=== PATIENT | male | born 1960 | race Caucasian/White ===

== ENCOUNTER 2023-04-02 12:40 | Inpatient (IN) | payer OTHER ==
[~2023-04-02] VITALS: Ht 170.2 cm; Wt 86.2 kg
[2023-04-02] MEDS ORDERED: PIPERACILLIN /TAZOBACTAM 3.375 G in IV D5W 50 ML IV ONE (13:00)
[2023-04-02] MEDS ORDERED: VANCOMYCIN 1 GM in IV D5W 250 ML IV ONE (13:00)
[2023-04-02 13:37] LABS: BASOPHILS # (AUTO) 0.1 K/uL (0.0-0.2); BASOPHILS % (AUTO) 0.9 % (0.0-2.0); EOSINOPHILS # (AUTO) 0.1 K/uL (0.0-0.7); EOSINOPHILS % (AUTO) 1.9 % (0.0-6.0); HEMATOCRIT 46 % (39-51); HEMOGLOBIN 15.8 g/dL (13.5-17.5); LYMPHOCYTES # (AUTO) 2.2 K/uL (0.8-4.8); LYMPHOCYTES % (AUTO) 29.4 % (20.0-44.0); MEAN CORPUSCULAR HEMOGLOBIN 32 PG (26.0-33.0); MEAN CORPUSCULAR HGB CONC 34 g/dl (31.0-36.0); MEAN CORPUSCULAR VOLUME 93 fL (80-96); MONOCYTES # (AUTO) 0.6 K/uL (0.1-1.30); MONOCYTES % (AUTO) 8.5 % (2.0-12.0); NEUTROPHILS # (AUTO) 4.5 K/uL (1.8-8.9); NEUTROPHILS % (AUTO) 59.3 % (43.0-81.0); PLATELET COUNT (AUTO) 173 K/uL (150-450); RED BLOOD CELL COUNT(AUTO) 4.98 MIL/uL (4.5-6.0); RED CELL DISTRIBUTION WIDTH 13.7 % (11.5-15.0); WHITE BLOOD COUNT (AUTO) 7.5 K/uL (4.3-11.0)
[2023-04-02] MEDS ORDERED: CLON0.1T PO (13:41)
[2023-04-02] MEDS ORDERED: CADE40GE2 TP (13:41)
[2023-04-02] MEDS ORDERED: BACL20TA PO ×2 (13:41)
[2023-04-02] MEDS ORDERED: DOCU-141 PO (13:41)
[2023-04-02] MEDS ORDERED: RIVA10TA PO ×2 (13:41)
[2023-04-02] MEDS ORDERED: BISA10SU11 RC (13:41)
[2023-04-02] MEDS ORDERED: HYDR-3976 PO (13:41)
[2023-04-02] MEDS ORDERED: HYDR-4209 PO ×2 (13:41)
[2023-04-02] MEDS ORDERED: NA P133E RC (13:41)
[2023-04-02] MEDS ORDERED: ACET-868 PO (13:41)
[2023-04-02] MEDS ORDERED: SENN-261 PO (13:41)
[2023-04-02] MEDS ORDERED: MULT-447 PO (13:41)
[2023-04-02] MEDS ORDERED: MAGN400O6 PO (13:41)
[2023-04-02] MEDS ORDERED: OXYB10TA30 PO (13:41)
[2023-04-02] MEDS ORDERED: GABA-532 PO (13:41)
[2023-04-02] MEDS ORDERED: ASCO-352 PO (13:41)
[2023-04-02] MEDS ORDERED: LISI-768 PO (13:41)
[2023-04-02 13:48] LABS: C-REACTIVE PROTEIN 0.34 mg/dL (0.0-0.30); CREATININE 0.8 mg/dL (0.6-1.3); POTASSIUM 4.1 mmol/L (3.5-5.1)
[2023-04-02 13:52] LABS: ERYTHROCYTE SEDIMENTATION RATE 21 MM/HR (0-20)
[2023-04-02 13:54] LABS: ALBUMIN 3.5 g/dL (3.4-5.0); BILIRUBIN,TOTAL 0.4 mg/dL (0.2-1.0); TOTAL PROTEIN, SERUM 7.7 g/dL (6.4-8.2)
[2023-04-02] MEDS ORDERED: DEXTROSE 50%-WATER 50 ML DISP.SYRIN IV PRN (18:00)
[2023-04-02] MEDS ORDERED: ONDANSETRON HCL/PF 4 MG/2 ML VIAL IVP PRN (18:00)
[2023-04-02] MEDS ORDERED: Z GUARD REMEDY 4 OZ OINT TP PRN (18:00)
[2023-04-02 20:00] VITALS: BP 147/93; TEMP 98.1; O2SAT 96
[2023-04-02] MEDS: BLOOD SUGAR DIAGNOSTIC 1 EACH STRIP IN SCH (21:43)
[2023-04-02] MEDS: INSULIN REGULAR, HUMAN 100 UNIT/ML 3 ML VIAL SQ PRN (21:44)
[2023-04-02] MEDS: ACETAMINOPHEN 325 MG TABLET PO PRN (23:55)
[2023-04-03] MEDS: VANCOMYCIN 1.25 GM in IV D5W 250 ML IV SCH ×2 (01:51→14:08)
[2023-04-03] MEDS: INSULIN REGULAR, HUMAN 100 UNIT/ML 3 ML VIAL SQ PRN ×2 (06:34→11:41)
[2023-04-03] MEDS: BLOOD SUGAR DIAGNOSTIC 1 EACH STRIP IN SCH ×4 (06:34→22:12)
[2023-04-03 07:00] LABS: BASOPHILS % (AUTO) 0.5 % (0.0-2.0); EOSINOPHILS # (AUTO) 0.2 K/uL (0.0-0.7); EOSINOPHILS % (AUTO) 2.7 % (0.0-6.0); HEMATOCRIT 47 % (39-51); LYMPHOCYTES % (AUTO) 29.6 % (20.0-44.0); MEAN CORPUSCULAR HEMOGLOBIN 32 PG (26.0-33.0); MEAN CORPUSCULAR HGB CONC 34 g/dl (31.0-36.0); MEAN CORPUSCULAR VOLUME 93 fL (80-96); MONOCYTES # (AUTO) 0.4 K/uL (0.1-1.30); MONOCYTES % (AUTO) 6.8 % (2.0-12.0); NEUTROPHILS % (AUTO) 60.4 % (43.0-81.0); PLATELET COUNT (AUTO) 157 K/uL (150-450); RED BLOOD CELL COUNT(AUTO) 5.03 MIL/uL (4.5-6.0); RED CELL DISTRIBUTION WIDTH 13.7 % (11.5-15.0); WHITE BLOOD COUNT (AUTO) 6.6 K/uL (4.3-11.0)
[2023-04-03 08:00] VITALS: BP 148/92; TEMP 98.2; O2SAT 96
[2023-04-03 08:24] LABS: CALCIUM, SERUM 8.8 mg/dL (8.5-10.1); CREATININE 0.8 mg/dL (0.6-1.3); MAGNESIUM 2.1 mg/dL (1.8-2.4); PHOSPHORUS 3.5 mg/dL (2.5-4.9); POTASSIUM 3.8 mmol/L (3.5-5.1)
[2023-04-03] MEDS: LISINOPRIL (5MG) 5 MG TABLET PO SCH (09:10)
[2023-04-03] MEDS: OXYBUTYNIN CHLORIDE ER 5 MG TAB PO SCH (09:11)
[2023-04-03] MEDS: BACLOFEN (10 MG) 10 MG TABLET PO SCH ×2 (09:11→16:23)
[2023-04-03] MEDS: GABAPENTIN 300 MG CAPSULE PO SCH ×3 (09:12→16:24)
[2023-04-03] MEDS: RIVAROXABAN 10 MG TABLET PO SCH (09:14)
[2023-04-03] MEDS ORDERED: IOHEXOL-350 100 ML VIAL IV ONE (09:59)
[2023-04-03] MEDS ORDERED: CT SWABBABLE VALVE TRANS SET 1 EA INFUS.SET MC ONE (09:59)
[2023-04-03] MEDS ORDERED: IV NS 0.9% 250 ML IV ONE (09:59)
[2023-04-03 16:00] VITALS: BP 123/80; TEMP 98.4; O2SAT 96
[2023-04-03 19:45] VITALS: BP 114/80; TEMP 98.8; O2SAT 97
[2023-04-04] MEDS: VANCOMYCIN 1.25 GM in IV D5W 250 ML IV SCH (02:27)
[2023-04-04] MEDS: BLOOD SUGAR DIAGNOSTIC 1 EACH STRIP IN SCH ×4 (06:08→22:17)
[2023-04-04 08:46] VITALS: BP 132/80; TEMP 98; O2SAT 98
[2023-04-04] MEDS: BACLOFEN (10 MG) 10 MG TABLET PO SCH ×2 (08:55→17:08)
[2023-04-04] MEDS: OXYBUTYNIN CHLORIDE ER 5 MG TAB PO SCH (08:55)
[2023-04-04] MEDS: LISINOPRIL (5MG) 5 MG TABLET PO SCH (08:55)
[2023-04-04] MEDS: GABAPENTIN 300 MG CAPSULE PO SCH ×3 (08:55→17:08)
[2023-04-04] MEDS: RIVAROXABAN 10 MG TABLET PO SCH (08:56)
[2023-04-04] MEDS: CADEXOMER IODINE 40 GM TUBE TP SCH (08:59)
[2023-04-04] MEDS: VANCOMYCIN 1 GM in IV D5W 250 ML IV SCH (15:24)
[2023-04-04 16:13] VITALS: BP 131/95; TEMP 98.7; O2SAT 97
[2023-04-04 20:00] VITALS: BP 140/87; TEMP 98; O2SAT 96
[2023-04-05] VITALS (12 sets, daily range): BP systolic 128–155; BP diastolic 62–119; TEMP 97.3–98.4; O2SAT 93–98
[2023-04-05] MEDS: VANCOMYCIN 1 GM in IV D5W 250 ML IV SCH ×2 (03:34→16:47)
[2023-04-05] MEDS: IV NS 0.9% 1,000 ML IV PRN ×2 (05:43→17:13)
[2023-04-05] MEDS ORDERED: IV NS 0.9% 1,000 ML BAG IV SCH (06:00)
[2023-04-05 07:10] LABS: CALCIUM, SERUM 9.1 mg/dL (8.5-10.1); CREATININE 0.8 mg/dL (0.6-1.3); POTASSIUM 3.9 mmol/L (3.5-5.1)
[2023-04-05] MEDS: BLOOD SUGAR DIAGNOSTIC 1 EACH STRIP IN SCH ×4 (08:22→23:11)
[2023-04-05 09:41] LABS: INR 1.13 (0.91-1.10); PARTIAL THROMBOPLASTIN TIME 33.7 SEC (24.3-34.3); PROTHROMBIN TIME 11.9 SECS (9.2-11.1)
[2023-04-05] MEDS: GABAPENTIN 300 MG CAPSULE PO SCH ×3 (10:41→16:48)
[2023-04-05] MEDS: LISINOPRIL (5MG) 5 MG TABLET PO SCH (10:41)
[2023-04-05] MEDS: OXYBUTYNIN CHLORIDE ER 5 MG TAB PO SCH (10:42)
[2023-04-05] MEDS: BACLOFEN (10 MG) 10 MG TABLET PO SCH ×2 (10:42→16:49)
[2023-04-05] MEDS: CADEXOMER IODINE 40 GM TUBE TP SCH (11:24)
[2023-04-05] MEDS ORDERED: IODIXANOL 150 ML IV ONE (13:02)
[2023-04-05] MEDS ORDERED: IV NS 0.9% 1,000 ML ONE (13:02)
[2023-04-05] MEDS ORDERED: IV SET PRIMARY PUMP SET 1 EA INFUS.SET MC ONE (13:02)
[2023-04-05] MEDS ORDERED: LIDOCAINE HCL/MPF 1% 30 ML VIAL IJ ONE (13:02)
[2023-04-05] MEDS ORDERED: FENTANYL PF 100MCG/2ML AMPUL ONE (13:35)
[2023-04-05] MEDS ORDERED: MIDAZOLAM HCL 2 MG/2ML VIAL ONE (13:35)
[2023-04-05] MEDS: FLUCONAZOLE (100 MG) 100 MG TABLET PO SCH (16:49)
[2023-04-05] MEDS: NYSTATIN TOP POWDER 15 GM BOTTLE TP SCH (17:33)
[2023-04-05] MEDS: INSULIN REGULAR, HUMAN 100 UNIT/ML 3 ML VIAL SQ PRN ×2 (17:40→23:11)
[2023-04-06] MEDS: VANCOMYCIN 1 GM in IV D5W 250 ML IV SCH ×2 (02:25→15:45)
[2023-04-06] MEDS: BLOOD SUGAR DIAGNOSTIC 1 EACH STRIP IN SCH ×4 (06:37→21:49)
[2023-04-06 07:51] LABS: CALCIUM, SERUM 8.8 mg/dL (8.5-10.1); CREATININE 0.7 mg/dL (0.6-1.3)
[2023-04-06 08:00] VITALS: BP 139/85; TEMP 98.2; O2SAT 96
[2023-04-06] MEDS: GABAPENTIN 300 MG CAPSULE PO SCH ×3 (08:25→16:38)
[2023-04-06] MEDS: BACLOFEN (10 MG) 10 MG TABLET PO SCH ×2 (08:25→16:38)
[2023-04-06] MEDS: OXYBUTYNIN CHLORIDE ER 5 MG TAB PO SCH (08:25)
[2023-04-06] MEDS: FLUCONAZOLE (100 MG) 100 MG TABLET PO SCH (08:26)
[2023-04-06] MEDS: LISINOPRIL (5MG) 5 MG TABLET PO SCH (08:34)
[2023-04-06] MEDS: NYSTATIN TOP POWDER 15 GM BOTTLE TP SCH ×2 (10:19→16:39)
[2023-04-06] MEDS: CADEXOMER IODINE 40 GM TUBE TP SCH (10:19)
[2023-04-06] MEDS: INSULIN REGULAR, HUMAN 100 UNIT/ML 3 ML VIAL SQ PRN ×2 (11:13→16:53)
[2023-04-06] MEDS: IV NS 0.9% 1,000 ML IV PRN (12:21)
[2023-04-06 16:13] VITALS: BP 139/83; TEMP 97.9; O2SAT 98
[2023-04-06 20:00] VITALS: BP 124/79; TEMP 97.8; O2SAT 96
[2023-04-07] MEDS: VANCOMYCIN 1 GM in IV D5W 250 ML IV SCH ×2 (02:54→15:37)
[2023-04-07] MEDS: IV NS 0.9% 1,000 ML IV PRN ×2 (02:54→18:23)
[2023-04-07 05:58] LABS: CALCIUM, SERUM 8.8 mg/dL (8.5-10.1); CREATININE 0.7 mg/dL (0.6-1.3); POTASSIUM 3.9 mmol/L (3.5-5.1)
[2023-04-07] MEDS: BLOOD SUGAR DIAGNOSTIC 1 EACH STRIP IN SCH ×4 (06:30→22:07)
[2023-04-07 07:30] VITALS: BP 132/91; TEMP 97.9; O2SAT 97
[2023-04-07] MEDS: FLUCONAZOLE (100 MG) 100 MG TABLET PO SCH (08:52)
[2023-04-07] MEDS: OXYBUTYNIN CHLORIDE ER 5 MG TAB PO SCH (08:52)
[2023-04-07] MEDS: GABAPENTIN 300 MG CAPSULE PO SCH ×3 (08:52→17:32)
[2023-04-07] MEDS: LISINOPRIL (5MG) 5 MG TABLET PO SCH (08:53)
[2023-04-07] MEDS: BACLOFEN (10 MG) 10 MG TABLET PO SCH ×2 (08:53→17:32)
[2023-04-07] MEDS: NYSTATIN TOP POWDER 15 GM BOTTLE TP SCH ×2 (09:28→17:33)
[2023-04-07] MEDS: CADEXOMER IODINE 40 GM TUBE TP SCH (09:28)
[2023-04-07 16:15] VITALS: BP 134/87; TEMP 97.3; O2SAT 96
[2023-04-07 20:43] VITALS: BP 139/84; TEMP 98.4; O2SAT 96
[2023-04-07] MEDS: INSULIN REGULAR, HUMAN 100 UNIT/ML 3 ML VIAL SQ PRN (22:11)
[2023-04-08] MEDS: VANCOMYCIN 1 GM in IV D5W 250 ML IV SCH (03:05)
[2023-04-08] MEDS: BLOOD SUGAR DIAGNOSTIC 1 EACH STRIP IN SCH ×4 (06:14→22:03)
[2023-04-08] MEDS: INSULIN REGULAR, HUMAN 100 UNIT/ML 3 ML VIAL SQ PRN ×4 (06:35→22:06)
[2023-04-08 07:30] VITALS: BP 135/87; TEMP 98.4; O2SAT 96
[2023-04-08] MEDS: FLUCONAZOLE (100 MG) 100 MG TABLET PO SCH (09:23)
[2023-04-08] MEDS: OXYBUTYNIN CHLORIDE ER 5 MG TAB PO SCH (09:24)
[2023-04-08] MEDS: BACLOFEN (10 MG) 10 MG TABLET PO SCH ×2 (09:24→17:10)
[2023-04-08] MEDS: LISINOPRIL (5MG) 5 MG TABLET PO SCH (09:24)
[2023-04-08] MEDS: GABAPENTIN 300 MG CAPSULE PO SCH ×3 (09:24→17:10)
[2023-04-08] MEDS: NYSTATIN TOP POWDER 15 GM BOTTLE TP SCH ×2 (09:27→17:10)
[2023-04-08] MEDS: CADEXOMER IODINE 40 GM TUBE TP SCH (09:28)
[2023-04-08] MEDS: ACETAMINOPHEN 325 MG TABLET PO PRN (11:39)
[2023-04-08] MEDS: IV NS 0.9% 1,000 ML IV PRN (11:42)
[2023-04-08 20:00] VITALS: BP 115/83; TEMP 98; O2SAT 98
[2023-04-09] MEDS: IV NS 0.9% 1,000 ML IV PRN ×2 (01:45→15:44)
[2023-04-09] MEDS: BLOOD SUGAR DIAGNOSTIC 1 EACH STRIP IN SCH ×4 (06:10→22:05)
[2023-04-09] MEDS: INSULIN REGULAR, HUMAN 100 UNIT/ML 3 ML VIAL SQ PRN ×4 (06:14→22:06)
[2023-04-09 06:59] LABS: BASOPHILS % (AUTO) 0.7 % (0.0-2.0); EOSINOPHILS # (AUTO) 0.2 K/uL (0.0-0.7); EOSINOPHILS % (AUTO) 2.6 % (0.0-6.0); HEMATOCRIT 43 % (39-51); HEMOGLOBIN 14.6 g/dL (13.5-17.5); LYMPHOCYTES # (AUTO) 1.6 K/uL (0.8-4.8); LYMPHOCYTES % (AUTO) 25.2 % (20.0-44.0); MEAN CORPUSCULAR HEMOGLOBIN 32 PG (26.0-33.0); MEAN CORPUSCULAR HGB CONC 34 g/dl (31.0-36.0); MEAN CORPUSCULAR VOLUME 93 fL (80-96); MONOCYTES # (AUTO) 0.4 K/uL (0.1-1.30); MONOCYTES % (AUTO) 6.1 % (2.0-12.0); NEUTROPHILS # (AUTO) 4.2 K/uL (1.8-8.9); NEUTROPHILS % (AUTO) 65.4 % (43.0-81.0); PLATELET COUNT (AUTO) 151 K/uL (150-450); RED BLOOD CELL COUNT(AUTO) 4.58 MIL/uL (4.5-6.0); RED CELL DISTRIBUTION WIDTH 13.6 % (11.5-15.0); WHITE BLOOD COUNT (AUTO) 6.4 K/uL (4.3-11.0)
[2023-04-09 07:00] VITALS: BP 144/74; TEMP 97.5; O2SAT 98
[2023-04-09 07:10] LABS: INR 1.07 (0.91-1.10); PROTHROMBIN TIME 11.3 SECS (9.2-11.1)
[2023-04-09 08:06] LABS: MAGNESIUM 1.9 mg/dL (1.8-2.4); PHOSPHORUS 4.1 mg/dL (2.5-4.9)
[2023-04-09] MEDS: BACLOFEN (10 MG) 10 MG TABLET PO SCH ×2 (09:25→17:35)
[2023-04-09] MEDS: GABAPENTIN 300 MG CAPSULE PO SCH ×3 (09:25→17:35)
[2023-04-09] MEDS: OXYBUTYNIN CHLORIDE ER 5 MG TAB PO SCH (09:25)
[2023-04-09] MEDS: FLUCONAZOLE (100 MG) 100 MG TABLET PO SCH (09:26)
[2023-04-09] MEDS: LISINOPRIL (5MG) 5 MG TABLET PO SCH (09:26)
[2023-04-09] MEDS: NYSTATIN TOP POWDER 15 GM BOTTLE TP SCH ×2 (09:29→17:36)
[2023-04-09] MEDS: CADEXOMER IODINE 40 GM TUBE TP SCH (09:31)
[2023-04-09] MEDS ORDERED: Magnesium 1 GM/2 ML VIAL IV ONE (14:30)
[2023-04-09] MEDS: Magnesium 1GM/D5W 100ML PREMIX 100 ML IV SCH ×2 (15:55→17:34)
[2023-04-09 16:00] VITALS: BP 150/103; TEMP 97.4; O2SAT 95
[2023-04-09 20:07] VITALS: BP 124/83; TEMP 97.9; O2SAT 99
[2023-04-10] VITALS (26 sets, daily range): BP systolic 96–153; BP diastolic 65–106; TEMP 97.8–98.9; O2SAT 94–99
[2023-04-10 05:45] LABS: BASOPHILS # (AUTO) 0.1 K/uL (0.0-0.2); BASOPHILS % (AUTO) 0.8 % (0.0-2.0); EOSINOPHILS # (AUTO) 0.2 K/uL (0.0-0.7); EOSINOPHILS % (AUTO) 2.2 % (0.0-6.0); HEMATOCRIT 44 % (39-51); HEMOGLOBIN 14.7 g/dL (13.5-17.5); LYMPHOCYTES # (AUTO) 1.8 K/uL (0.8-4.8); LYMPHOCYTES % (AUTO) 25.6 % (20.0-44.0); MEAN CORPUSCULAR HEMOGLOBIN 31 PG (26.0-33.0); MEAN CORPUSCULAR HGB CONC 34 g/dl (31.0-36.0); MEAN CORPUSCULAR VOLUME 94 fL (80-96); MONOCYTES # (AUTO) 0.4 K/uL (0.1-1.30); MONOCYTES % (AUTO) 5.9 % (2.0-12.0); NEUTROPHILS # (AUTO) 4.6 K/uL (1.8-8.9); NEUTROPHILS % (AUTO) 65.5 % (43.0-81.0); PLATELET COUNT (AUTO) 151 K/uL (150-450); RED BLOOD CELL COUNT(AUTO) 4.68 MIL/uL (4.5-6.0); RED CELL DISTRIBUTION WIDTH 13.3 % (11.5-15.0)
[2023-04-10 06:02] LABS: ALBUMIN 3.1 g/dL (3.4-5.0); CALCIUM, SERUM 8.8 mg/dL (8.5-10.1); CREATININE 0.7 mg/dL (0.6-1.3); MAGNESIUM 2.1 mg/dL (1.8-2.4); PHOSPHORUS 3.9 mg/dL (2.5-4.9); TOTAL PROTEIN, SERUM 7.3 g/dL (6.4-8.2)
[2023-04-10] MEDS: BLOOD SUGAR DIAGNOSTIC 1 EACH STRIP IN SCH ×4 (06:29→22:21)
[2023-04-10] MEDS: OXYBUTYNIN CHLORIDE ER 5 MG TAB PO SCH (09:17)
[2023-04-10] MEDS ORDERED: HEMOSTATIC MATRIX 8 ML 1 EACH PAD MC ONE (09:17)
[2023-04-10] MEDS: NYSTATIN TOP POWDER 15 GM BOTTLE TP SCH ×2 (09:17→17:00)
[2023-04-10] MEDS: LISINOPRIL (5MG) 5 MG TABLET PO SCH (09:17)
[2023-04-10] MEDS ORDERED: CELLULOSE,OXIDIZED 1 EA PACK MC ONE (09:18)
[2023-04-10] MEDS ORDERED: LIDOCAINE HCL/MPF 1% 30 ML VIAL IJ ONE (09:18)
[2023-04-10] MEDS: GABAPENTIN 300 MG CAPSULE PO SCH ×3 (09:18→18:11)
[2023-04-10] MEDS ORDERED: ANESTHESIA TRAY IN PYXIS 1 EA TRAY MC ONE (09:18)
[2023-04-10] MEDS: BACLOFEN (10 MG) 10 MG TABLET PO SCH ×2 (09:18→18:11)
[2023-04-10] MEDS ORDERED: CELLULOSE,OXIDIZED 1 EACH EACH MC ONE (09:18)
[2023-04-10] MEDS: CADEXOMER IODINE 40 GM TUBE TP SCH (09:19)
[2023-04-10] MEDS ORDERED: HYDROMORPHONE INJ 2 MG/ML DISP.SYRIN ONE (11:44)
[2023-04-10] MEDS ORDERED: FENTANYL PF 100MCG/2ML AMPUL ONE (11:44)
[2023-04-10] MEDS ORDERED: ROCURONIUM BROMIDE 50 MG/5 ML ONE (11:45)
[2023-04-10] MEDS ORDERED: MIDAZOLAM HCL 2 MG/2ML VIAL ONE (11:45)
[2023-04-10] MEDS ORDERED: Magnesium 1 GM/2 ML VIAL ONE (12:53)
[2023-04-10] MEDS ORDERED: HEPARIN SODIUM, PORCINE 5000 UNITS/1 ML VIAL ONE (13:08)
[2023-04-10] MEDS ORDERED: POLYMYXIN B SULFATE 500,000 UNITS ONE (13:30)
[2023-04-10] MEDS ORDERED: LABETALOL HCL IV 100MG VIAL ONE (13:58)
[2023-04-10] MEDS ORDERED: SEVOFLURANE 250 ML BOTTLE IH ONE (15:58)
[2023-04-10] MEDS ORDERED: BACITRACIN ZINC OINT (15 GM) 15 GM TUBE TP ONE (16:20)
[2023-04-10 17:21] LABS: BASOPHILS % (AUTO) 0.4 % (0.0-2.0); EOSINOPHILS # (AUTO) 0.1 K/uL (0.0-0.7); EOSINOPHILS % (AUTO) 0.7 % (0.0-6.0); HEMATOCRIT 43 % (39-51); HEMOGLOBIN 14.7 g/dL (13.5-17.5); LYMPHOCYTES # (AUTO) 0.6 K/uL (0.8-4.8); LYMPHOCYTES % (AUTO) 7.1 % (20.0-44.0); MEAN CORPUSCULAR HEMOGLOBIN 32 PG (26.0-33.0); MEAN CORPUSCULAR HGB CONC 34 g/dl (31.0-36.0); MEAN CORPUSCULAR VOLUME 93 fL (80-96); MONOCYTES # (AUTO) 0.1 K/uL (0.1-1.30); MONOCYTES % (AUTO) 0.7 % (2.0-12.0); NEUTROPHILS # (AUTO) 8.1 K/uL (1.8-8.9); NEUTROPHILS % (AUTO) 91.1 % (43.0-81.0); PLATELET COUNT (AUTO) 149 K/uL (150-450); RED BLOOD CELL COUNT(AUTO) 4.63 MIL/uL (4.5-6.0); RED CELL DISTRIBUTION WIDTH 13.5 % (11.5-15.0); WHITE BLOOD COUNT (AUTO) 8.9 K/uL (4.3-11.0)
[2023-04-10] MEDS ORDERED: CLONIDINE HCL 0.1 MG TABLET PO PRN (17:30)
[2023-04-10 17:31] LABS: CALCIUM, SERUM 8.6 mg/dL (8.5-10.1); CREATININE 0.9 mg/dL (0.6-1.3); MAGNESIUM 2.3 mg/dL (1.8-2.4); POTASSIUM 4.3 mmol/L (3.5-5.1)
[2023-04-10] MEDS: INSULIN REGULAR, HUMAN 100 UNIT/ML 3 ML VIAL SQ PRN ×2 (17:50→22:23)
[2023-04-10] MEDS: IV NS 0.9% 1,000 ML IV PRN (19:49)
[2023-04-11] VITALS (20 sets, daily range): BP systolic 109–149; BP diastolic 68–113; TEMP 98–99.4; O2SAT 95–97
[2023-04-11] MEDS ORDERED: MORPHINE SULFATE INJ 2 MG/ML DISP.SYRIN IV PRN (01:00)
[2023-04-11 04:14] LABS: BASOPHILS % (AUTO) 0.3 % (0.0-2.0); HEMATOCRIT 41 % (39-51); HEMOGLOBIN 13.8 g/dL (13.5-17.5); LYMPHOCYTES # (AUTO) 1.4 K/uL (0.8-4.8); LYMPHOCYTES % (AUTO) 12.8 % (20.0-44.0); MEAN CORPUSCULAR HEMOGLOBIN 32 PG (26.0-33.0); MEAN CORPUSCULAR HGB CONC 34 g/dl (31.0-36.0); MEAN CORPUSCULAR VOLUME 93 fL (80-96); MONOCYTES # (AUTO) 0.8 K/uL (0.1-1.30); MONOCYTES % (AUTO) 7.2 % (2.0-12.0); NEUTROPHILS # (AUTO) 8.5 K/uL (1.8-8.9); NEUTROPHILS % (AUTO) 79.7 % (43.0-81.0); PLATELET COUNT (AUTO) 176 K/uL (150-450); RED BLOOD CELL COUNT(AUTO) 4.38 MIL/uL (4.5-6.0); RED CELL DISTRIBUTION WIDTH 13.6 % (11.5-15.0); WHITE BLOOD COUNT (AUTO) 10.7 K/uL (4.3-11.0)
[2023-04-11 04:26] LABS: CALCIUM, SERUM 8.9 mg/dL (8.5-10.1); CREATININE 0.8 mg/dL (0.6-1.3); MAGNESIUM 2.2 mg/dL (1.8-2.4); PHOSPHORUS 3.4 mg/dL (2.5-4.9); POTASSIUM 4.1 mmol/L (3.5-5.1)
[2023-04-11] MEDS: BLOOD SUGAR DIAGNOSTIC 1 EACH STRIP IN SCH ×4 (07:59→21:24)
[2023-04-11] MEDS: INSULIN REGULAR, HUMAN 100 UNIT/ML 3 ML VIAL SQ PRN ×2 (08:00→12:27)
[2023-04-11] MEDS: GABAPENTIN 300 MG CAPSULE PO SCH ×3 (08:30→17:31)
[2023-04-11] MEDS: BACLOFEN (10 MG) 10 MG TABLET PO SCH ×2 (08:30→17:29)
[2023-04-11] MEDS: OXYBUTYNIN CHLORIDE ER 5 MG TAB PO SCH (08:30)
[2023-04-11] MEDS: NYSTATIN TOP POWDER 15 GM BOTTLE TP SCH ×2 (08:31→17:29)
[2023-04-11] MEDS: CADEXOMER IODINE 40 GM TUBE TP SCH (08:31)
[2023-04-11] MEDS: LISINOPRIL (10MG) 10 MG TABLET PO SCH (09:27)
[2023-04-11] MEDS: IV NS 0.9% 1,000 ML IV PRN ×2 (09:50→23:00)
[2023-04-11] MEDS ORDERED: HYDROCODONE/APAP 5/325MG TABLET PO PRN (14:30)
[2023-04-12] MEDS: BLOOD SUGAR DIAGNOSTIC 1 EACH STRIP IN SCH ×2 (06:48→12:00)
[2023-04-12 07:28] LABS: BASOPHILS % (AUTO) 0.3 % (0.0-2.0); EOSINOPHILS # (AUTO) 0.1 K/uL (0.0-0.7); EOSINOPHILS % (AUTO) 0.8 % (0.0-6.0); HEMATOCRIT 39 % (39-51); HEMOGLOBIN 13.5 g/dL (13.5-17.5); LYMPHOCYTES # (AUTO) 1.4 K/uL (0.8-4.8); LYMPHOCYTES % (AUTO) 15.9 % (20.0-44.0); MEAN CORPUSCULAR HEMOGLOBIN 32 PG (26.0-33.0); MEAN CORPUSCULAR HGB CONC 35 g/dl (31.0-36.0); MEAN CORPUSCULAR VOLUME 93 fL (80-96); MONOCYTES # (AUTO) 0.7 K/uL (0.1-1.30); MONOCYTES % (AUTO) 7.8 % (2.0-12.0); NEUTROPHILS # (AUTO) 6.7 K/uL (1.8-8.9); NEUTROPHILS % (AUTO) 75.2 % (43.0-81.0); PLATELET COUNT (AUTO) 151 K/uL (150-450); RED CELL DISTRIBUTION WIDTH 13.7 % (11.5-15.0); WHITE BLOOD COUNT (AUTO) 8.9 K/uL (4.3-11.0)
[2023-04-12 07:48] LABS: BILIRUBIN,TOTAL 1.7 mg/dL (0.2-1.0); CALCIUM, SERUM 8.8 mg/dL (8.5-10.1); CREATININE 0.8 mg/dL (0.6-1.3); MAGNESIUM 1.8 mg/dL (1.8-2.4); PHOSPHORUS 3.5 mg/dL (2.5-4.9); POTASSIUM 3.8 mmol/L (3.5-5.1); TOTAL PROTEIN, SERUM 7.2 g/dL (6.4-8.2)
[2023-04-12] MEDS: GABAPENTIN 300 MG CAPSULE PO SCH ×3 (08:36→13:00)
[2023-04-12] MEDS: OXYBUTYNIN CHLORIDE ER 5 MG TAB PO SCH (08:36)
[2023-04-12] MEDS: BACLOFEN (10 MG) 10 MG TABLET PO SCH (08:36)
[2023-04-12] MEDS: LISINOPRIL (10MG) 10 MG TABLET PO SCH (08:37)
[2023-04-12] MEDS: CADEXOMER IODINE 40 GM TUBE TP SCH (09:00)
[2023-04-12] MEDS: NYSTATIN TOP POWDER 15 GM BOTTLE TP SCH (09:00)
[2023-04-12 09:24] VITALS: BP 132/74; TEMP 98; O2SAT 95
== END 2023-04-12 15:40 | DRG 181 ==
LOC: ER 12:45 → MED 14:58 → ICU 04-05 15:02 → MED 04-05 22:22 → ICU 04-10 16:12 → MED 04-11 16:35
PROVIDERS: ADMIT Nurse Practitioner Acute Care
PROC: B41DYZZ Fluoroscopy of Aorta and Bilateral Lower Extremity Arteries using Other Contrast (ICD-10-PCS; principal; 2023-04-05)
PROC: 041L09L Bypass Left Femoral Artery to Popliteal Artery with Autologous Venous Tissue, Open Approach (ICD-10-PCS; 2023-04-09)
PROC: 06BQ0ZZ Excision of Left Saphenous Vein, Open Approach (ICD-10-PCS; 2023-04-09)
DX: I70.248 Atherosclerosis of native arteries of left leg with ulceration of other part of lower leg (principal); E87.1 Hypo-osmolality and hyponatremia; G62.9 Polyneuropathy, unspecified; N32.81 Overactive bladder; I10 Essential (primary) hypertension; L97.829 Non-pressure chronic ulcer of other part of left lower leg with unspecified severity; M43.00 Spondylolysis, site unspecified; R26.9 Unspecified abnormalities of gait and mobility; Z86.718 Personal history of other venous thrombosis and embolism; Z86.16 Personal history of COVID-19; Z79.01 Long term (current) use of anticoagulants; Z79.899 Other long term (current) drug therapy; G95.9 Disease of spinal cord, unspecified; F17.200 Nicotine dependence, unspecified, uncomplicated; I77.1 Stricture of artery; I70.25 Atherosclerosis of native arteries of other extremities with ulceration; L98.499 Non-pressure chronic ulcer of skin of other sites with unspecified severity
CPT/HCPCS: 36246; 36415; 71045-TC; 73590-TC; 75625; 80048-TC; 80053-TC; 80061-TC; 80202-TC; 82962-TC; 83605-TC; 83735-TC; 84100-TC; 85025-TC; 85610-TC; 85652-TC; 85730-TC; 86140-TC; 86850-TC; 87040-TC; 87081-TC; 93307-TC; 93970-TC; A4223; A4338; A6209; A6253; A6407; C1751; C1769; C1887; C1894; G0378; G0500; J0360; J0690; J1100; J1170; J1644; J1815; J1885; J2250; J2270; J2405; J2543; J2704; J2765; J3010; J3370; J3475; J3490; J7030; J7050; J7060; Q9967

== ENCOUNTER 2023-05-28 09:44 | Inpatient (IN) | payer OTHER ==
[~2023-05-28] VITALS: Ht 162.6 cm; Wt 86.2 kg
[~2023-05-28 09:44] MED LIST: ACET-868 PO; ASCO-352 PO; BACL20TA PO; BISA10SU11 RC; CADE40GE2 TP; CLON0.1T PO; DOCU-141 PO; GABA-532 PO; HYDR-3976 PO; HYDR-4209 PO; LISI-768 PO; MAGN400O6 PO; MULT-447 PO; NA P133E RC; OXYB10TA30 PO; RIVA10TA PO; SENN-261 PO
[2023-05-28] MEDS ORDERED: PIPERACI/TAZO 3.375GM/D5W 50ML PB IV ONE (11:07)
[2023-05-28] MEDS ORDERED: LACT10SO5 PO (11:11)
[2023-05-28] MEDS ORDERED: ARGI1POW13 PO (11:11)
[2023-05-28] MEDS ORDERED: GABA800T11 PO (11:11)
[2023-05-28] MEDS ORDERED: *INS REG3 SQ (11:11)
[2023-05-28] MEDS ORDERED: LISI10TA29 PO (11:11)
[2023-05-28] MEDS: PIPERACILLIN /TAZOBACTAM 3.375 G in IV D5W 50 ML IV ONE (11:15)
[2023-05-28 11:23] LABS: BASOPHILS % (AUTO) 0.4 % (0.0-2.0); EOSINOPHILS # (AUTO) 0.1 K/uL (0.0-0.7); EOSINOPHILS % (AUTO) 1.5 % (0.0-6.0); HEMATOCRIT 40 % (39-51); LYMPHOCYTES # (AUTO) 1.5 K/uL (0.8-4.8); LYMPHOCYTES % (AUTO) 17.3 % (20.0-44.0); MEAN CORPUSCULAR HEMOGLOBIN 31 PG (26.0-33.0); MEAN CORPUSCULAR HGB CONC 35 g/dl (31.0-36.0); MEAN CORPUSCULAR VOLUME 91 fL (80-96); MONOCYTES # (AUTO) 0.5 K/uL (0.1-1.30); MONOCYTES % (AUTO) 5.7 % (2.0-12.0); NEUTROPHILS # (AUTO) 6.4 K/uL (1.8-8.9); NEUTROPHILS % (AUTO) 75.1 % (43.0-81.0); PLATELET COUNT (AUTO) 190 K/uL (150-450); RED BLOOD CELL COUNT(AUTO) 4.46 MIL/uL (4.5-6.0); RED CELL DISTRIBUTION WIDTH 13.3 % (11.5-15.0); WHITE BLOOD COUNT (AUTO) 8.5 K/uL (4.3-11.0)
[2023-05-28 11:29] LABS: ALBUMIN 2.9 g/dL (3.4-5.0); BILIRUBIN,DIRECT 0.1 mg/dL (0.0-0.2); BILIRUBIN,TOTAL 0.4 mg/dL (0.2-1.0); CALCIUM, SERUM 9.1 mg/dL (8.5-10.1); CREATININE 0.8 mg/dL (0.6-1.3); POTASSIUM 3.9 mmol/L (3.5-5.1); TOTAL PROTEIN, SERUM 7.4 g/dL (6.4-8.2)
[2023-05-28] MEDS: VANCOMYCIN 1 GM in IV D5W 250 ML IV ONE (11:55)
[2023-05-28] MEDS ORDERED: MAGNESIUM HYDROXIDE 30 ML UDC PO PRN (16:00)
[2023-05-28] MEDS ORDERED: ONDANSETRON HCL/PF 4 MG/2 ML VIAL IVP PRN (16:00)
[2023-05-28] MEDS ORDERED: ACETAMINOPHEN 325 MG TABLET PO PRN (16:00)
[2023-05-28 17:00] VITALS: BP 124/75; TEMP 98.1; O2SAT 97
[2023-05-28] MEDS: BLOOD SUGAR DIAGNOSTIC 1 EACH STRIP IN SCH (17:30)
[2023-05-28] MEDS ORDERED: INSULIN REGULAR, HUMAN 100 UNIT/ML 3 ML VIAL SQ PRN (17:30)
[2023-05-28] MEDS ORDERED: DEXTROSE 50%-WATER 50 ML DISP.SYRIN IV PRN (17:30)
[2023-05-28] MEDS: ARGININE/GLUTAMINE/CALCIUM BMB 1 EACH POWD.PACK PO SCH (17:55)
[2023-05-28] MEDS: GABAPENTIN 400 MG CAPSULE PO SCH (17:56)
[2023-05-28 20:00] VITALS: BP 114/71; TEMP 97.9; O2SAT 96
[2023-05-28 20:23] LABS: BILIRUBIN,URINE NEGATIVE (NEGATIVE); BLOOD, URINE TRACE-INTA Ery/uL (NEGATIVE); COLOR,URINE YELLOW (YELLOW); KETONES,URINE NEGATIVE (NEGATIVE); LEUKOCYTE ESTERASE ,URINE 3+ (NEGATIVE); NITRITE, URINE NEGATIVE (NEGATIVE); PH,URINE 8.5 (5.0-8.0); PROTEIN,URINE NEGATIVE (NEGATIVE); UGLUCOSE NEGATIVE (NEGATIVE); UROBILINOGEN,URINE 0.2 EU/dL (0.2)
[2023-05-28] MEDS: CEFEPIME HCL 2 GM in IV D5W 100 ML IV SCH (20:25)
[2023-05-28 20:27] LABS: APPEARANCE,URINE HAZY (CLEAR)
[2023-05-28 21:04] VITALS: BP 114/71; TEMP 97.9; O2SAT 96
[2023-05-28 21:14] LABS: RBC,URINE 0-2 /HPF (0-2)
[2023-05-28 21:15] LABS: ADD URINE CULTURE YES; BACTERIA,URINE Many /HPF (None Seen); SQUAMOUS EPITHELIAL CELL,UR Few /HPF (None Seen)
[2023-05-28 21:16] LABS: TRIPLE PHOSPHATE CRYSTAL,UR Few /HPF (None Seen); URINE AMORPHOUS URATE Moderate /HPF (None Seen)
[2023-05-28] MEDS: VANCOMYCIN 1 GM in IV D5W 250ml IV SCH (22:22)
[2023-05-29 07:05] LABS: INR 1.11 (0.91-1.10); PROTHROMBIN TIME 11.7 SECS (9.2-11.1)
[2023-05-29 07:09] LABS: BASOPHILS % (AUTO) 0.3 % (0.0-2.0); EOSINOPHILS # (AUTO) 0.2 K/uL (0.0-0.7); EOSINOPHILS % (AUTO) 2.3 % (0.0-6.0); HEMATOCRIT 40 % (39-51); HEMOGLOBIN 13.7 g/dL (13.5-17.5); LYMPHOCYTES # (AUTO) 1.4 K/uL (0.8-4.8); LYMPHOCYTES % (AUTO) 18.2 % (20.0-44.0); MEAN CORPUSCULAR HEMOGLOBIN 31 PG (26.0-33.0); MEAN CORPUSCULAR HGB CONC 35 g/dl (31.0-36.0); MEAN CORPUSCULAR VOLUME 90 fL (80-96); MONOCYTES # (AUTO) 0.5 K/uL (0.1-1.30); MONOCYTES % (AUTO) 6.5 % (2.0-12.0); NEUTROPHILS # (AUTO) 5.6 K/uL (1.8-8.9); NEUTROPHILS % (AUTO) 72.7 % (43.0-81.0); PLATELET COUNT (AUTO) 192 K/uL (150-450); RED BLOOD CELL COUNT(AUTO) 4.45 MIL/uL (4.5-6.0); RED CELL DISTRIBUTION WIDTH 13.4 % (11.5-15.0); WHITE BLOOD COUNT (AUTO) 7.7 K/uL (4.3-11.0)
[2023-05-29] MEDS: PANTOPRAZOLE 40 MG TABLET.DR PO SCH (07:30)
[2023-05-29 07:43] LABS: CALCIUM, SERUM 9.1 mg/dL (8.5-10.1); CREATININE 0.8 mg/dL (0.6-1.3); POTASSIUM 3.9 mmol/L (3.5-5.1)
[2023-05-29 08:00] VITALS: BP 122/77; TEMP 98.1; O2SAT 95
[2023-05-29] MEDS: LISINOPRIL (10MG) 10 MG TABLET PO SCH (08:54)
[2023-05-29] MEDS: MULTIVIT W/MINERALS 1 TAB TABLET PO SCH (08:55)
[2023-05-29] MEDS ORDERED: BUPIVACAINE 0.5 % PF 150 MG/30 ML VIAL ONE (09:26)
[2023-05-29] MEDS ORDERED: LIDOCAINE 1% INJ 50 ML MDV IJ ONE (09:26)
[2023-05-29] MEDS ORDERED: ANESTHESIA TRAY IN PYXIS 1 EA TRAY MC ONE (09:26)
[2023-05-29] MEDS ORDERED: FENTANYL PF 100MCG/2ML AMPUL ONE (13:12)
[2023-05-29] MEDS ORDERED: KETAMINE HCL (500MG/10ML) 50 MG/ML VIAL ONE (13:12)
[2023-05-29] MEDS ORDERED: BACITRACIN ZINC OINT (15 GM) 15 GM TUBE TP ONE (13:44)
[2023-05-29] MEDS: HYDROCODONE/APAP 5/325MG TABLET PO PRN (15:00)
[2023-05-29 16:19] VITALS: BP 153/100; TEMP 98.1; O2SAT 97
[2023-05-29 20:00] VITALS: BP 145/93; TEMP 98.2; O2SAT 96
[2023-05-30 08:30] VITALS: BP 125/78; TEMP 97.9; O2SAT 97
[2023-05-30] MEDS ORDERED: QUETIAPINE FUMARATE 25 MG TABLET PO PRN (11:00)
[2023-05-30 16:02] VITALS: BP 130/73; TEMP 98.4; O2SAT 96
[2023-05-31 06:54] LABS: CALCIUM, SERUM 9.3 mg/dL (8.5-10.1); CREATININE 0.8 mg/dL (0.6-1.3); POTASSIUM 4.1 mmol/L (3.5-5.1)
[2023-05-31 08:56] VITALS: BP_SYST 124; BP_SYST 156; BP_DIAS 72; BP_DIAS 99; TEMP 97.9; O2SAT 95; O2SAT 97
[2023-05-31] MEDS: PROSOURCE / PROSTAT (PYXIS) 30 ML UDC PO SCH (12:36)
[2023-05-31 16:16] VITALS: BP 134/89; TEMP 98.8; O2SAT 99
[2023-05-31 20:00] VITALS: BP 144/63; TEMP 98.2; O2SAT 99
[2023-05-31] MEDS: CEFEPIME HCL 2 GM in IV D5W 100 ML IV SCH (21:30)
[2023-06-01 08:00] VITALS: BP 126/83; TEMP 98.3; O2SAT 95
[2023-06-01] MEDS: LEVOFLOXACIN (250MG) 250 MG TABLET PO SCH (13:34)
[2023-06-01] MEDS: DOXYCYCLINE HYCLATE (100 MG) 100 MG TABLET PO SCH (13:34)
[2023-06-01] MEDS: MUPIROCIN OINT 2% 22 GM TUBE TP SCH (15:02)
[2023-06-01 15:25] LABS: CALCIUM, SERUM 9.2 mg/dL (8.5-10.1); CREATININE 0.9 mg/dL (0.6-1.3); POTASSIUM 4.1 mmol/L (3.5-5.1)
[2023-06-01 16:00] VITALS: BP 137/98; TEMP 97.9; O2SAT 96
[2023-06-01 20:00] VITALS: BP 133/83; TEMP 97.7; O2SAT 96
[2023-06-01] MEDS: AMOX/CLAVULANATE 875 MG TABLET PO SCH (21:19)
[2023-06-02 09:02] VITALS: BP 132/93; TEMP 97.7; O2SAT 96
[2023-06-02 16:47] VITALS: BP 130/82; TEMP 97.7; O2SAT 99
[2023-06-02 20:00] VITALS: BP 138/90; TEMP 98.8; O2SAT 96
[2023-06-03] MEDS ORDERED: AMOX1TAB16 PO (11:44)
[2023-06-03] MEDS ORDERED: LEVO250T59 PO (11:44)
[2023-06-03] MEDS ORDERED: DOXY100T2 PO (11:44)
[2023-06-03 16:00] VITALS: BP 115/81; TEMP 98.6; O2SAT 98
[2023-06-03 20:00] VITALS: BP_SYST 115; BP_DIAS 80; BP_DIAS 85; TEMP 97.9; O2SAT 98
[2023-06-04 08:00] VITALS: BP 129/88; TEMP 98.4; O2SAT 96
[2023-06-04 12:00] VITALS: BP 132/76; TEMP 97.9; O2SAT 97
[2023-06-04 20:00] VITALS: BP 145/95; TEMP 98.1; O2SAT 95
[2023-06-04] MEDS: Z GUARD REMEDY 4 OZ OINT TP PRN (21:04)
[2023-06-05 07:00] VITALS: BP 119/87; TEMP 97.9; O2SAT 99
[2023-06-05 11:30] VITALS: BP 119/54; TEMP 98.2; O2SAT 99
== END 2023-06-05 15:51 | DRG 364 ==
LOC: ER 10:13 → MED 16:30
PROVIDERS: ADMIT Nurse Practitioner Family; ATTEND Nurse Practitioner Family
PROC: 0KBT0ZZ Excision of Left Lower Leg Muscle, Open Approach (ICD-10-PCS; principal; 2023-05-29)
DX: L03.116 Cellulitis of left lower limb (principal); E87.1 Hypo-osmolality and hyponatremia; L97.828 Non-pressure chronic ulcer of other part of left lower leg with other specified severity; I73.9 Peripheral vascular disease, unspecified; N32.81 Overactive bladder; G62.9 Polyneuropathy, unspecified; M47.9 Spondylosis, unspecified; I10 Essential (primary) hypertension; Z86.16 Personal history of COVID-19; R73.9 Hyperglycemia, unspecified; Z86.718 Personal history of other venous thrombosis and embolism; Z79.01 Long term (current) use of anticoagulants; Z98.62 Peripheral vascular angioplasty status; G95.9 Disease of spinal cord, unspecified
CPT/HCPCS: 36415; 71045-TC; 73590-TC; 73630-TC; 80048-TC; 80061-TC; 80076-TC; 80202-TC; 81001; 83735-TC; 84100-TC; 85025-TC; 85610-TC; 85652-TC; 86140-TC; 87040-TC; 87081-TC; 87086-TC; 97110-TC; 97112-TC; 97530-TC; A4223; A6403; G0378; J0692; J1100; J1815; J2405; J2543; J2704; J3010; J3370; J3490; J7050; J7060